=== PATIENT | female | born 1975 | race Caucasian/White ===

== ENCOUNTER 2020-12-20 06:58 | Day surgery (SDC) | payer OTHER ==
[2020-12-18 07:24] LABS: COVID AG,FIA SOURCE NASOPHARYNGEAL
[~2020-12-20] VITALS: Ht 188 cm; Wt 113.2 kg
[~2020-12-20 06:58] MED LIST: SODIUM CHLORIDE 0.9% 1,000 ML IV ONE
[2020-12-20] MEDS ORDERED: LIDOCAINE 2% 30 ML JELLY TP ONE (06:59)
[2020-12-20] MEDS ORDERED: BENZOCAINE 20% 50 MCG/SPRAY 57 GM TP ONE (06:59)
[2020-12-20] MEDS ORDERED: ALBUTEROL SULFATE 2.5 MG/0.5 ML NEB SOLUTION NEB ONE (06:59)
[2020-12-20] MEDS ORDERED: SODIUM CHLORIDE 0.9% 1,000 ML ONE (08:35)
[2020-12-20] MEDS ORDERED: MONT-35 PO (08:57)
[2020-12-20] MEDS ORDERED: AZEL137S8 NASAL (08:57)
[2020-12-20] MEDS ORDERED: MAGN400T7 PO (08:57)
[2020-12-20] MEDS ORDERED: UMEC1DIS IH (08:57)
[2020-12-20] MEDS ORDERED: FentaNYL CITRATE PF 100 MCG/2 ML VIAL ONE (09:24)
[2020-12-20] MEDS ORDERED: MIDAZOLAM HCL 2 MG/2 ML VIAL ONE (09:24)
[2020-12-20] MEDS ORDERED: MethylPREDNISolone SOD SUCC 125 MG/2 ML VIAL IVP ONE (09:30)
[2020-12-20] MEDS ORDERED: MethylPREDNISolone SOD SUCC 125 MG/2 ML VIAL ONE (10:11)
[2020-12-20] MEDS ORDERED: OXYGEN THERAPY IH SCH (20:00)
== END 2020-12-20 11:25 | disposition home or self-care (01) ==
LOC: SURGERY 06:58
PROVIDERS: ATTEND Internal Medicine Critical Care Medicine
DX: J38.4 Edema of larynx (principal); B37.0 Candidal stomatitis; Z88.6 Allergy status to analgesic agent; Z98.890 Other specified postprocedural states; Z79.899 Other long term (current) drug therapy
CPT/HCPCS: 31623; 31624; 71045; 87015; 87070; 87101; 87205; 87206; 87220; 87426; 88108; 88184; 88185; 88312; C9803; J2250; J2930; J3010; J7030; J7613

== ENCOUNTER 2021-12-05 05:28 | Day surgery (SDC) | payer OTHER ==
[~2021-12-05] VITALS: Ht 190.5 cm; Wt 106.8 kg
[2021-12-05] MEDS ORDERED: SODIUM CHLORIDE 0.9% 1,000 ML ONE (06:29)
[2021-12-05] MEDS ORDERED: SODIUM CHLORIDE 0.9% 1,000 ML IV ONE (06:30)
[2021-12-05 06:54] LABS: COVID AG,FIA SOURCE NASAL SWAB
[2021-12-05] MEDS ORDERED: AZEL137S8 NS (06:58)
[2021-12-05] MEDS ORDERED: FentaNYL CITRATE PF 100 MCG/2 ML VIAL ONE (07:08)
[2021-12-05] MEDS ORDERED: MIDAZOLAM HCL 5 MG/ML VIAL ONE (07:09)
[2021-12-05] MEDS ORDERED: MethylPREDNISolone SOD SUCC 125 MG/2 ML VIAL IVP ONE (09:00)
[2021-12-05] MEDS ORDERED: MethylPREDNISolone SOD SUCC 125 MG/2 ML VIAL ONE (09:11)
[2021-12-05] MEDS ORDERED: OXYGEN THERAPY IH SCH (20:00)
== END 2021-12-05 10:50 | disposition home or self-care (01) ==
LOC: SURGERY 05:28
PROVIDERS: ATTEND Internal Medicine Critical Care Medicine
DX: J38.4 Edema of larynx (principal); B37.0 Candidal stomatitis; Z90.710 Acquired absence of both cervix and uterus; Z98.890 Other specified postprocedural states; Z79.899 Other long term (current) drug therapy
CPT/HCPCS: 31623; 31624; 71045; 87015; 87070; 87101; 87206; 87220; 87426; 88184; 88185; C9803; J2250; J2930; J3010; J7030; 88112; 88312